=== PATIENT | female | born 1980 | race Caucasian/White ===

== ENCOUNTER 2020-03-12 03:38 | Emergency (ER) | payer OTHER, SELFPAY ==
--- NOTE | 2020-03-12 04:17 | ER ---
Nurse's Notes [facility] Name: Gisselle Fulton Age: 39 yrs Sex: Female : 1980 Arrival Date: 03/12/2020 Time: 03:41 Bed 6 Private MD: Diagnosis: Blister (nonthermal) of right thumb;Insect bite (nonvenomous) of right hand;Cellulitis of right finger Presentation: 03/12 03:47 Chief complaint: Patient states: my right thumb is hurting and swollen. I felt rr5 yesterday something pinched my hand but I did not see what it was. Coronavirus screen: Proceed with normal triage. Ebola Screen: Patient negative for fever greater than or equal to 101.5 degrees Fahrenheit, and additional compatible Ebola Virus Disease symptoms Patient denies exposure to infectious person. Patient denies travel to an Ebola-affected area in the 21 days before illness onset. Initial Sepsis Screen: Does the patient meet any 2 criteria? No. Patient's initial sepsis screen is negative. Does the patient have a suspected source of infection? No. Patient's initial sepsis screen is negative. Risk Assessment: Do you want to hurt yourself or someone else? Patient reports no desire to harm self or others. Onset of symptoms was March 11, 2020. 03:47 Method Of Arrival: Ambulatory rr5 03:47 Acuity: ROSALINO 3 rr5 03:47 Note denies , rashes or itchiness as stated by patient. rr5 Triage Assessment: 03:47 Injury Description: punctured wound, blister, swelling at right thumb. 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 - Social history:: Smoking status: Patient reports the use of cigarette tobacco products, smokes one-half pack cigarettes per day, Patient uses street drugs, marijuana, Patient/guardian denies using alcohol. - Family history:: not pertinent. - Hospitalizations: : No recent hospitalization is reported. Screenin:52 Abuse screen: Denies threats or abuse. Denies injuries from another. Nutritional rr5 screening: No deficits noted. Tuberculosis screening: No symptoms or risk factors identified. Fall Risk None identified. Total Gage Fall Scale indicates No Risk (0-24 pts). Assessment: 03:47 General: Appears in no apparent distress. uncomfortable, Behavior is calm, cooperative, rr5 appropriate for age. Pain: Complains of pain in right thumb Pain radiates to right hand Pain currently is 10 out of 10 on a pain scale. Quality of pain is described as aching, Pain began gradually, 1 day ago. Is intermittent. 03:47 Neuro: Level of Consciousness is awake, alert, obeys commands, Oriented to person, rr5 place, time, situation. Cardiovascular: Capillary refill < 3 seconds Patient's skin is warm and dry. Respiratory: Airway is patent Respiratory effort is even, unlabored, Respiratory pattern is regular, symmetrical. GI: No signs and/or symptoms were reported involving the gastrointestinal system. : No signs and/or symptoms were reported regarding the genitourinary system. EENT: No signs and/or symptoms were reported regarding the EENT system. Derm: Skin is intact, is healthy with good turgor, Skin temperature is warm Wound noted right thumb Wound is swelling, whitish discharge and blister noted. Musculoskeletal: Capillary refill < 3 seconds. 04:44 Reassessment: Patient appears in no apparent distress at this time. Patient is alert, rr5 oriented x 3, equal unlabored respirations, skin warm/dry/pink. discharge instruction given and explained without complaints made. Patient states feeling better. Patient states symptoms have improved. Vital Signs: 03:47 BP 159 / 103; Pulse 80; Resp 17; Temp 97.8; Pulse Ox 100% ; Weight 47.17 kg; Height 5 rr5 ft. 2 in. (157.48 cm); Pain 10/10; 04:31 BP 141 / 89; Pulse 86; Resp 16; Pulse Ox 99% ; rr5 03:47 Body Mass Index 19.02 (47.17 kg, 157.48 cm) rr5 ED Course: 03:41 Patient arrived in ED. ag3 03:47 Wilner Rivas RN is Primary Nurse. rr5 03:50 Ronal Hemphill MD is Attending Physician. rn 03:51 Triage completed. rr5 03:52 Arm band placed on right wrist. rr5 03:52 Patient has correct armband on for positive identification. Bed in low position. Call rr5 light in reach. 04:10 Wound care: to puncture located on right thumb was cleaned with Hibiclens, irrigated rr5 with normal saline, dressed with Neosporin, 4X4s, Kerlix, Patient tolerated well. 04:10 No provider procedures requiring assistance completed. Patient did not have IV access rr5 during this emergency room visit. 04:16 Isreal Terrazas MD is Referral Physician. rn Administered Medications: 04:15 Drug: Seneca 10 mg-325 mg 1 tabs {Note: rass 0.} Route: PO; rr5 04:45 Follow up: Response: No adverse reaction; Pain is decreased; RASS: Alert and Calm (0) rr5 04:20 Drug: Clindamycin 900 mg {Note: and right gluteus.} Route: IM; Site: left gluteus; rr5 04:45 Follow up: Response: No adverse reaction rr5 Outcome: 04:16 Discharge ordered by . rn 04:44 Discharged to home ambulatory. rr5 04:44 Condition: stable 04:44 Discharge instructions given to patient, Instructed on discharge instructions, follow up and referral plans. medication usage, Demonstrated understanding of instructions, follow-up care, medications, Prescriptions given X 2. 04:45 Patient left the ED. rr5 Signatures: Ronal Hemphill MD MD rn Gomez, Alice ag3 Roque, Raymond, RN RN rr5
--- NOTE | 2020-03-12 04:17 | EDPHYS ---
Physician Documentation [facility] Name: Gisselle Fulton Age: 39 yrs Sex: Female : 1980 Arrival Date: 03/12/2020 Time: 03:41 Bed 6 Private MD: ED Physician Ronal Hemphill HPI: 03/12 04:10 This 39 yrs old Female presents to ER via Ambulatory with complaints of rn Finger Injury. 04:10 The patient or guardian reports pain. The complaints affect the right thumb. rn 04:11 Onset: The symptoms/episode began/occurred yesterday. Modifying factors: The symptoms rn are alleviated by holding still, the symptoms are aggravated by movement. Severity of symptoms: At their worst the symptoms were mild, in the emergency department the symptoms are unchanged. The patient has not experienced similar symptoms in the past. Reports moving boxes yesterday, felt a "pinch", not sure if bitten by ant or other insect, did not see anything particular. Reports "blood blister" to right back of thumb, got larger and more painful today, + painful thumb, no extension to hand/wrist. Denies injection or other trauma. no fever. . [employer]: 03:57 LMP 03/2020 rr5 Historical: - Allergies: 03:51 No Known Allergies; rr5 - Home Meds: 03:51 None [Active]; rr5 - PMHx: 03:51 None; rr5 - PSHx: 03:51 ; Skin Graft; rr5 - Immunization history:: Adult Immunizations up to date, Last tetanus immunization: up to date < 5 years ago 2016. - Social history:: Smoking status: Patient reports the use of cigarette tobacco products, smokes one-half pack cigarettes per day, Patient uses street drugs, marijuana, Patient/guardian denies using alcohol. - Family history:: not pertinent. - Hospitalizations: : No recent hospitalization is reported. ROS: 04:11 Constitutional: Negative for fever, chills, and weight loss, MS/Extremity: + possible rn insect bite to right thumb, + thumb pain and swollen area Exam: 04:11 Constitutional: This is a well developed, well nourished patient who is awake, alert, rn and in no acute distress. MS/ Extremity: Pulses equal, no cyanosis. Neurovascular intact. + 2 cm purple swollen blister dorsum right thumb with fluctuance, no fusiform swelling, + tender at area of fluctuance, no streaking or swelling that extends beyond thumb. Vital Signs: 03:47 BP 159 / 103; Pulse 80; Resp 17; Temp 97.8; Pulse Ox 100% ; Weight 47.17 kg; Height 5 rr5 ft. 2 in. (157.48 cm); Pain 10/10; 04:31 BP 141 / 89; Pulse 86; Resp 16; Pulse Ox 99% ; rr5 03:47 Body Mass Index 19.02 (47.17 kg, 157.48 cm) rr5 Procedures: 04:11 I \\T\\ D: Incision and drainage was performed for an abscess of the right dorsum thumb rn Prepped with alcohol, Incised with 18 g needle. Drained moderate amount serosanguinous fluid. Dressing: sterile 4x4 gauze, the patient tolerated the procedure well, Unroofed blister/fluctuant area with 18 g needle, completely decompressed, patient improved comfort.. MDM: 03:50 Patient medically screened. rn 04:11 Differential diagnosis: insect bite, spider bite, abscess, cellulitis. Data reviewed: rn vital signs, nurses notes, and as a result, I will discharge patient. Counseling: I had a detailed discussion with the patient and/or guardian regarding: the historical points, exam findings, and any diagnostic results supporting the discharge/admit diagnosis, the need for outpatient follow up, to return to the emergency department if symptoms worsen or persist or if there are any questions or concerns that arise at home. Response to treatment: the patient's symptoms have mildly improved after treatment, and as a result, I will discharge patient. Special discussion: I discussed with the patient/guardian in detail that at this point there is no indication for admission to the hospital. It is understood, however, that if the symptoms persist or worsen the patient needs to return immediately for re-evaluation. ED course: Will dc home with abx, return precautions given and understood. . 03/12 04:29 Order name: Wound Care; Complete Time: 04:30 rr5 Administered Medications: 04:15 Drug: Richards 10 mg-325 mg 1 tabs {Note: rass 0.} Route: PO; rr5 04:45 Follow up: Response: No adverse reaction; Pain is decreased; RASS: Alert and Calm (0) rr5 04:20 Drug: Clindamycin 900 mg {Note: and right gluteus.} Route: IM; Site: left gluteus; rr5 04:45 Follow up: Response: No adverse reaction rr5 Disposition: 03/12/20 04:16 Discharged to Home. Impression: Blister (nonthermal) of right thumb, Insect bite (nonvenomous) of right hand, Cellulitis of right finger. - Condition is Stable. - Discharge Instructions: Blisters, Adult, Insect Bite, Cellulitis, Adult. - Prescriptions for Clindamycin HCl 300 mg Oral Capsule - take 1 capsule by ORAL route every 6 hours for 10 days; 40 capsule. Ultram 50 mg Oral Tablet - take 1 tablet by ORAL route every 6 hours As needed; 15 tablet. - Medication Reconciliation Form, Thank You Letter, Antibiotic Education, Prescription Opioid Use form. - Follow up: Isreal Terrazas MD; When: 2 - 3 days; Reason: Wound Recheck, Recheck today's complaints, Re-evaluation by your physician. - Problem is new. - Symptoms have improved. Signatures: Ronal Hemphill MD MD rn Roque, Raymond, RN RN rr5 Corrections: (The following items were deleted from the chart) 04:45 04:16 03/12/2020 04:16 Discharged to Home. Impression: Blister (nonthermal) of right rr5 thumb; Insect bite (nonvenomous) of right hand; Cellulitis of right finger. Condition is Stable. Forms are Medication Reconciliation Form, Thank You Letter, Antibiotic Education, Prescription Opioid Use. Follow up: Isreal Terrazas; When: 2 - 3 days; Reason: Wound Recheck, Recheck today's complaints, Re-evaluation by your physician. Problem is new. Symptoms have improved. rn
[2020-03-12] MEDS ORDERED: HYDROCODONE/APAP 10/325 TAB ONE (04:22)
[2020-03-12] MEDS ORDERED: CLINDAMYCIN IV 150 MG/ML (4 mL) VIAL ONE (04:22)
== END 2020-03-12 04:45 | disposition home or self-care (01) ==
LOC: ER 03:38
PROC: 0J9J0ZZ Drainage of Right Hand Subcutaneous Tissue and Fascia, Open Approach (ICD-10-PCS; principal; 2020-03-12)
DX: L03.011 Cellulitis of right finger (principal); S60.361A Insect bite (nonvenomous) of right thumb, initial encounter; S60.321A Blister (nonthermal) of right thumb, initial encounter
CPT/HCPCS: 96372; 99284; S0077